=== PATIENT | male | born 1990 | race Two or more races ===

== ENCOUNTER 2019-08-05 22:36 | Emergency (ER) | payer SELFPAY ==
[~2019-08-05] VITALS: Ht 170.2 cm; Wt 63.5 kg
--- NOTE | 2019-08-05 22:45 | NUR ---
PATIENT CAME TO ER BED 2 C/O SOB AND PAIN UPON BREATHING SINCE 1 HOUR AND A HALF AGO. PATIENT STATES THAT HE RAN OUT OF INHALER AT HOME. AAOX4. BREATHING RELIEVED IN TRIPOD POSITION. CONNECTED TO MONITOR.
--- NOTE | 2019-08-05 22:51 | NUR ---
RT CALLED FOR BREATHING TREATMENT
[2019-08-05] MEDS ORDERED: ALBUTEROL FS 2.5 MG/0.5 ML VIAL.NEB ONE ×2 (22:54→23:02)
[2019-08-05] MEDS ORDERED: ALBUTEROL FS 2.5 MG/0.5 ML VIAL.NEB NEB ONE (23:00)
--- NOTE | 2019-08-05 23:00 | NUR ---
XRAY AT BEDSIDE
--- NOTE | 2019-08-05 23:05 | NUR ---
BREATHING TREATMENT COMPLETE. MD NOTIFIED. PATIENT STATES THAT HE FEELS BETTER.
--- NOTE | 2019-08-05 23:15 | NUR ---
Patient discharged to home in stable condition. Written and verbal after care instructions given. Patient verbalizes understanding of instruction.
[2019-08-05 23:17] VITALS: BP 125/74
== END 2019-08-05 23:18 | disposition home or self-care (01) ==
LOC: ER 22:37
DX: J45.901 Unspecified asthma with (acute) exacerbation (principal); F17.200 Nicotine dependence, unspecified, uncomplicated
CPT/HCPCS: 71045-TC

== ENCOUNTER 2019-12-30 19:44 | Emergency (ER) | payer SELFPAY ==
[~2019-12-30] VITALS: Ht 170.2 cm; Wt 63.5 kg
[2019-12-30] MEDS ORDERED: ALBUTEROL FS 2.5 MG/3 ML VIAL.NEB ONE (20:14)
[2019-12-30] MEDS ORDERED: predniSONE 20 MG TABLET ONE (20:15)
[2019-12-30] MEDS: predniSONE 20 MG TABLET PO ONE (20:18)
--- NOTE | 2019-12-30 20:20 | NUR ---
SOB X "FEW MINS AGO" AUDIBLE WHEEZES, HX OF ASTHMA, TAKING ALBUTEROL PUFF NO RELIEF. PT AAOX4, VSS. DENIES CP, DIZZINESS, N/V AT THIS TIME. PT SEEN & EVAL'D BY KALYAN LINARES. MEDICATED ORDERED & GETTING BREATHING TX, PT DM WELL. WILL CONT TO MONITOR.
[2019-12-30] MEDS: IPRATROPIUM NEB FS 0.5 MG/2.5 ML AMPUL.NEB NEB ONE (20:26)
[2019-12-30] MEDS: ALBUTEROL FS 2.5 MG/3 ML VIAL.NEB CONTNEB ONE (20:26)
[2019-12-30 21:50] VITALS: BP 118/84
--- NOTE | 2019-12-30 21:51 | NUR ---
Patient discharged to home in stable condition. Written and verbal after care instructions given. Patient verbalizes understanding of instruction.
== END 2019-12-30 21:51 | disposition home or self-care (01) ==
LOC: ER 19:48
DX: J45.909 Unspecified asthma, uncomplicated (principal); F17.200 Nicotine dependence, unspecified, uncomplicated
CPT/HCPCS: 94644; 99285; J7512

== ENCOUNTER 2021-12-02 12:31 | Emergency (ER) | payer OTHER ==
[~2021-12-02] VITALS: Ht 167.6 cm; Wt 63.5 kg
[2021-12-02 13:15] VITALS: BP 104/60
--- NOTE | 2021-12-02 14:05 | NUR ---
Chi CLEMENTE AT BEDSIDE
[2021-12-02] MEDS ORDERED: SULF1TAB48 PO (14:23)
--- NOTE | 2021-12-02 14:36 | NUR ---
Patient discharged to home in stable condition. Written and verbal after care instructions given. Patient verbalizes understanding of instruction.
== END 2021-12-02 14:36 | disposition home or self-care (01) ==
LOC: ER 12:34
DX: L03.116 Cellulitis of left lower limb (principal); L03.115 Cellulitis of right lower limb; J45.909 Unspecified asthma, uncomplicated; Z59.00 Homelessness unspecified

== ENCOUNTER 2022-05-09 23:04 | Emergency (ER) | payer OTHER ==
[~2022-05-09] VITALS: Ht 167.6 cm; Wt 63.5 kg
[~2022-05-09 23:04] MED LIST: SULF1TAB48 PO
[2022-05-10 00:02] VITALS: BP 114/68
[2022-05-10] MEDS ORDERED: ALBU8.5H8 INH (00:10)
[2022-05-10] MEDS ORDERED: ALBUTEROL FS 2.5 MG/0.5 ML VIAL.NEB ONE (00:20)
[2022-05-10] MEDS ORDERED: ALBUTEROL FS 2.5 MG/0.5 ML VIAL.NEB NEB ONE (00:30)
== END 2022-05-10 01:21 | disposition home or self-care (01) ==
LOC: ER 23:05
DX: J45.909 Unspecified asthma, uncomplicated (principal); Z79.899 Other long term (current) drug therapy